=== PATIENT | female | born 1970 | race Caucasian/White ===

== ENCOUNTER 2021-05-21 10:01 | Emergency (ER) | payer OTHER ==
[2021-05-21 11:28] LABS: HEMOGLOBIN 11.1 gm/dl (12.3-15.3); RED BLOOD COUNT 3.77 M/UL (4.00-5.10); WHITE BLOOD COUNT 7.6 K/UL (4.5-11.0)
[2021-05-21 12:02] LABS: BUN/CREATININE RATIO 22 (0-10)
== END 2021-05-21 14:45 | disposition home or self-care (01) ==
LOC: ER1 10:01
PROVIDERS: Emergency Medicine
DX: R20.2 Paresthesia of skin (principal); R94.5 Abnormal results of liver function studies; F17.200 Nicotine dependence, unspecified, uncomplicated
CPT/HCPCS: 80053; 82550; 82553; 84484; 85025; 93005; 99284